=== PATIENT | female | born 1975 | race Two or more races ===

== ENCOUNTER 2021-06-23 11:54 | Outpatient (CLI) | payer OTHER | END 2021-06-23 12:02 | disposition home or self-care (01) | LOC: SONOGRAMA 11:54 | PROVIDERS: ATTEND Internal Medicine Endocrinology, Diabetes & Metabolism | DX: E04.1 Nontoxic single thyroid nodule (principal) ==

== ENCOUNTER 2021-11-25 10:20 | Outpatient (CLI) | payer OTHER | END 2021-11-25 10:36 | disposition home or self-care (01) | LOC: MAMO-SONO 10:20 | PROVIDERS: ATTEND Student in an Organized Health Care Education/Training Program | DX: N60.11 Diffuse cystic mastopathy of right breast (principal); N60.12 Diffuse cystic mastopathy of left breast ==